=== PATIENT | male | born 1965 | race Caucasian/White ===

== ENCOUNTER 2022-05-28 11:34 | Outpatient (CLI) | payer OTHER, SELFPAY ==
--- NOTE | ~2022-05-28 | NM_ITS ---
NM bone scan whole body INDICATION: Elevated prostate-specific antigen TECHNIQUE: The patient was injected with 25 mCi Tc 99m HDP. Gamma camera images of the region of int erest and whole body were obtained. COMPARISON: None FINDINGS: There is normal distribution of radiopharmaceutical throughout the skeletal and soft tissue structures. There is mild multilevel uptake in the thoracic and lumbar spine with mild curvature of the lumbar spine. There is bilateral symmetric uptake in the shoulders, wrists, knees and ankles, con sistent with degenerative joint disease. There is radiotracer uptake in multiple left ribs on posteri or view with rounded configuration, most likely posttraumatic. Recommend correlation with rib series. There is mild uptake in the left mandible, possibly due to odontogenic disease. No definite scintigr aphic evidence for osseous metastases. IMPRESSION: 1: Mild radiotracer uptake in multiple left ribs, possibly posttraumatic. Correlation with rib serie s recommended. 2: Mild uptake in the left mandible, possibly odontogenic disease. Reviewed, dictated and finalized at location [facility]. IMPRESSION: 1: Mild radiotracer uptake in multiple left ribs, possibly posttraumatic. Mari elation with rib series recommended. 2: Mild uptake in the left mandible, possibly odontogenic disease.
== END 2022-05-28 11:35 | disposition home or self-care (01) ==
PROVIDERS: PCP Family Medicine; Visit Provider Urology
DX: R97.20 Elevated prostate specific antigen [PSA] (principal)
CPT/HCPCS: 78306; A9561

== ENCOUNTER 2022-06-02 15:45 | Outpatient (CLI) | payer OTHER, SELFPAY ==
--- NOTE | ~2022-06-02 | XR_ITS ---
XR chest 2V DATE: 06/02/2022 16:00 INDICATION: Elevated PSA. No chest complaints. TECHNIQUE: PA and lateral views COMPARISON: None FINDINGS: Normal heart size. Mild aortic unfolding. No hilar or mediastinal enlargement. No pulmonary infiltrate or consolidation, pleural effusion or pulmonary vascular congestion or pneumothorax. IMPRESSION: No active cardiopulmonary disease Reviewed, dictated and finalized at location [facility].
== END 2022-06-02 15:46 | disposition home or self-care (01) ==
LOC: ANHIMG 15:46
PROVIDERS: PCP Family Medicine; Visit Provider Urology
DX: R97.20 Elevated prostate specific antigen [PSA] (principal)
CPT/HCPCS: 71046

== ENCOUNTER 2022-06-04 07:51 | Outpatient (CLI) | payer OTHER, SELFPAY ==
--- NOTE | ~2022-06-04 | CT_ITS ---
EXAMINATION: CT abdomen pelvis w con DATE: 06/04/2022 08:20 INDICATION: Elevated prostate-specific antigen TECHNIQUE: Computed tomography (CT) of the abdomen and pelvis was performed with 100 CC Omnipaque 350 intravenous contrast. Automated exposure control and iterative reconstruction technique were employe d. Exam dose: 574.40 mGy-cm total exam DLP. COMPARISON: None. FINDINGS: The lung bases are clear. Normal heart size. No pericardial or pleural effusion. The liver, gallbladder, bile ducts, pancreas, pancreatic, spleen, and adrenal glands are unremarkable . There are approximately 5 right renal cysts, the largest measuring up to approximately 3.7 cm maximal dimension. There are 2 very small left renal cortical cysts. Pinpoint lower pole nonobstructing left renal calculus. No ureteral calculus or hydroureteronephrosis. The urinary bladder and prostate gland are unremarkabl e. There is abdominal aortic calcification but no aneurysm. No intraperitoneal or retroperitoneal or pel nasir mass lesion or adenopathy or ascites is detected. Normal appendix. No bowel obstruction, bowel wall thickening, pneumatosis or intraperitoneal free air is detected. A prominent lipoma is noted at the right rectus femoris muscle. There is a 3 to 4 mm sclerotic focus in the lateral aspect of the left sixth rib. There is a 3.5 mm s clerotic lesion of the T10 vertebral body. There is a pinpoint sclerotic lesion of the right iliac cr est and 5 mm sclerotic focus of the left pubis. There is a small sclerotic focus of the right sacrum. These might all be small bone islands, but given the history of elevated PSA, osteosclerotic metasta ses from prostate cancer cannot be definitively excluded. Consider radionuclide bone scan for correla tion. There is severe degenerative disc disease at L1-2, L2-3 and L3-4 with mild retrolisthesis at each of these levels. IMPRESSION: Bilateral renal cysts Pinpoint nonobstructing lower pole left renal calculus Prominent right rectus femoris lipoma Scattered small osteosclerotic lesions; differential diagnosis includes bone islands, osteosclerotic metastatic disease. Consider correlation with radionuclide bone scan Reviewed, dictated and finalized at [facility]. Reviewed, dictated and finalized at location [facility]. IMPRESSION: Bilateral renal cysts Pinpoint nonobstructing lower pole left renal calculus Prominent right rectus femoris lipoma Scattered small osteosclerotic lesions; differential diagnosis includes bone is lands, osteosclerotic metastatic disease. Consider correlation with radionuclid e bone scan
[2022-06-04 08:15] LABS: Estimated Glomerular Filt Rate > 60
== END 2022-06-04 07:52 | disposition home or self-care (01) ==
PROVIDERS: PCP Family Medicine; Visit Provider Urology
DX: R97.20 Elevated prostate specific antigen [PSA] (principal); N28.1 Cyst of kidney, acquired; N20.0 Calculus of kidney
CPT/HCPCS: 74177; Q9967